=== PATIENT | male | born 1965 | race African-American/Black ===

== ENCOUNTER 2021-07-17 13:07 | Observation (INO) | payer MEDICAID ==
[~2021-07-17] VITALS: Ht 180.3 cm; Wt 81.0 kg
[2021-07-17] MEDS ORDERED: ASPIRIN81 MG PO (13:26)
[2021-07-17] MEDS ORDERED: TOPROL XL50 MG PO (13:26)
[2021-07-17] MEDS ORDERED: JANUVIA50 MG PO (13:26)
[2021-07-17] MEDS ORDERED: LISINOPRIL10 MG PO (13:27)
[2021-07-17] MEDS ORDERED: [UNRECOGNIZED DRUG - OTHER] PO (13:28)
[2021-07-17] MEDS ORDERED: CARVEDILOL12.5 MG PO (13:29)
[2021-07-17] MEDS ORDERED: METFORMIN500 M2 PO (13:29)
[2021-07-17 14:01] LABS: HEMATOCRIT 47.5 % (39.0-50.0); HEMOGLOBIN 15.4 g/dl (14.0-18.0); IMMATURE GRANULOCYTES 0.1 % (0.0-5.0); MEAN CELL VOLUME 98.1 fL CALC (80.0-100.0); MEAN CORPUSCULAR HGB 31.8 pG CALC (26.0-32.0); MEAN CORPUSCULAR HGB CONC 32.4 g/dL CAL (32.0-36.0); NEUT# 3.55 thou/uL (1.82-7.42); RED BLOOD COUNT 4.84 mill/uL (4.70-6.10); RED CELL DISTRI WIDTH 13.6 % (11.5-15.5)
[2021-07-17 14:19] LABS: ALBUMIN 4.3 g/dL (3.2-5.0); ALKALINE PHOSPHATASE 109 u/l (38-126); ANION GAP 12 (6-22 (CALC)); BILIRUBIN, TOTAL 0.5 mg/dL (0.0-1.4); BUN 14 mg/dL (9-20); BUN/CREATININE RATIO 10 (12-20 (CALC)); CARBON DIOXIDE 30 mmol/l (22-30); CHLORIDE 104 mmol/l (95-108); CREATININE 1.3 mg/dL (0.7-1.3); GFR 57 ML/MIN (>=60 (CALC)); GFR FOR AFR.AMER. > 60 ML/MIN (>=60 (CALC)); POTASSIUM 4.2 mmol/l (3.5-5.1); SGOT/AST 22 u/l (17-59); SODIUM 141 mmol/l (137-146); TOTAL PROTEIN 7.8 g/dL (6.3-8.2)
[2021-07-17 14:27] LABS: MYOGLOBIN 41 ng/mL (0 - 121)
[2021-07-17 20:08] VITALS: BP 126/83
[2021-07-18] VITALS: BP 136/80
[2021-07-18 03:54] VITALS: BP 126/75
[2021-07-18 06:07] LABS: HEMATOCRIT 43.1 % (39.0-50.0); HEMOGLOBIN 14.2 g/dl (14.0-18.0); MEAN CORPUSCULAR HGB 31.6 pG CALC (26.0-32.0); MEAN CORPUSCULAR HGB CONC 32.9 g/dL CAL (32.0-36.0); RED BLOOD COUNT 4.49 mill/uL (4.70-6.10); RED CELL DISTRI WIDTH 13.7 % (11.5-15.5)
[2021-07-18 06:25] LABS: ANION GAP 11 (6-22 (CALC)); BUN 18 mg/dL (9-20); BUN/CREATININE RATIO 13 (12-20 (CALC)); CALCULATED LDLCHOLESTEROL 82 mg/dL (62-129 (CALC)); CARBON DIOXIDE 26 mmol/l (22-30); CHLORIDE 106 mmol/l (95-108); CHOLESTEROL HDL RATIO 3.9 (<4.4 (CALC)); CREATININE 1.4 mg/dL (0.7-1.3); GFR 53 ML/MIN (>=60 (CALC)); GFR FOR AFR.AMER. > 60 ML/MIN (>=60 (CALC)); HDL CHOLESTEROL 33 mg/dL (>=40); POTASSIUM 4.4 mmol/l (3.5-5.1); SODIUM 139 mmol/l (137-146); TOTAL CHOLESTEROL 128 mg/dl (0-199); TOTAL TRIGLYCERIDES 65 mg/dl (30-149); VLDL CHOLESTROL 13 mg/dl (8-62 (CALC))
[2021-07-18 08:06] VITALS: BP 149/107
[2021-07-18] MEDS ORDERED: CARVEDILOL PHOSPHATE PO (09:24)
[2021-07-18] MEDS ORDERED: LISINOPRIL20 M1 PO (09:24)
[2021-07-18] MEDS ORDERED: TRAZODONE100 MG PO (09:24)
[2021-07-18] MEDS ORDERED: ATORVASTATIN CA10 MG PO (09:25)
[2021-07-18] MEDS ORDERED: COMPLERA PO (11:15)
[2021-07-18 11:51] VITALS: BP 133/82
[2021-07-18] MEDS ORDERED: MEDDOSEPAK PO (11:54)
[2021-07-18] MEDS ORDERED: ZPAK PO (11:55)
[2021-07-18] MEDS ORDERED: FLEXERIL5 M1 PO (11:55)
[2021-07-18] MEDS ORDERED: VENTOLIN HFA108 MCG IN (11:56)
== END 2021-07-18 13:30 | disposition home or self-care (01) ==
LOC: ED 13:07 → ED-I 16:33 → ED 16:55 → MS2 16:56
PROVIDERS: Emergency Medicine; Nurse Practitioner; ADMIT Internal Medicine; ATTEND Internal Medicine
DX: R07.89 Other chest pain (principal); J98.01 Acute bronchospasm; J06.9 Acute upper respiratory infection, unspecified; I11.0 Hypertensive heart disease with heart failure; I50.9 Heart failure, unspecified; E11.9 Type 2 diabetes mellitus without complications; I42.9 Cardiomyopathy, unspecified; I25.2 Old myocardial infarction; F17.210 Nicotine dependence, cigarettes, uncomplicated; Z21 Asymptomatic human immunodeficiency virus [HIV] infection status; Z95.810 Presence of automatic (implantable) cardiac defibrillator; Z79.84 Long term (current) use of oral hypoglycemic drugs; Z20.822 Contact with and (suspected) exposure to COVID-19
CPT/HCPCS: G0378; J1650

== ENCOUNTER 2021-08-20 09:46 | Observation (INO) | payer MEDICAID ==
[~2021-08-20] VITALS: Ht 180.3 cm; Wt 75.0 kg
[~2021-08-20 09:46] MED LIST: ASPIRIN81 MG PO; ATORVASTATIN CA10 MG PO; CARVEDILOL PHOSPHATE PO; CARVEDILOL12.5 MG PO; COMPLERA PO; FLEXERIL5 M1 PO; JANUVIA50 MG PO; LISINOPRIL10 MG PO; LISINOPRIL20 M1 PO; MEDDOSEPAK PO; METFORMIN500 M2 PO; TOPROL XL50 MG PO; TRAZODONE100 MG PO; VENTOLIN HFA108 MCG IN; ZPAK PO; [UNRECOGNIZED DRUG - OTHER] PO
--- NOTE | 2021-08-20 09:53 | NUR ---
PATIENT AMBULATED TO ROOM WITH STEADY GAIT AND PHYSICIAN NOTIFIED OF STATUS
[2021-08-20 10:59] LABS: HEMOGLOBIN 14.5 g/dl (14.0-18.0); IMMATURE GRANULOCYTES 0.2 % (0.0-5.0); MEAN CELL VOLUME 98.3 fL CALC (80.0-100.0); MEAN CORPUSCULAR HGB 31.7 pG CALC (26.0-32.0); MEAN CORPUSCULAR HGB CONC 32.2 g/dL CAL (32.0-36.0); NEUT# 3.34 thou/uL (1.82-7.42); RED BLOOD COUNT 4.58 mill/uL (4.70-6.10); RED CELL DISTRI WIDTH 13.7 % (11.5-15.5)
[2021-08-20 11:20] LABS: ALBUMIN 4.1 g/dL (3.2-5.0); ALKALINE PHOSPHATASE 83 u/l (38-126); ANION GAP 11 (6-22 (CALC)); BUN 13 mg/dL (9-20); BUN/CREATININE RATIO 10 (12-20 (CALC)); CARBON DIOXIDE 28 mmol/l (22-30); CHLORIDE 103 mmol/l (95-108); CREATININE 1.3 mg/dL (0.7-1.3); GFR 57 ML/MIN (>=60 (CALC)); GFR FOR AFR.AMER. > 60 ML/MIN (>=60 (CALC)); SGOT/AST 23 u/l (17-59); SODIUM 138 mmol/l (137-146); TOTAL PROTEIN 7.1 g/dL (6.3-8.2)
[2021-08-20 11:21] LABS: BILIRUBIN, TOTAL 0.8 mg/dL (0.0-1.4)
--- NOTE | 2021-08-20 13:22 | NUR ---
MD AT BEDSIDE. NOTIFIED BOTH PATIENT AND THIS RN THAT PT WILL NOT BE ADMITTED BUT D/C FROM THE ED. PT AWARE AND AGREEABLE TO PLAN OF CARE
[2021-08-20 13:33] VITALS: BP 122/78
== END 2021-08-20 13:40 | disposition home or self-care (01) | DRG 179 ==
LOC: ED 09:46 → ED-I 12:10 → ED 12:24 → ED-I 12:25
PROVIDERS: Family Medicine; ADMIT Hospitalist; ATTEND Hospitalist
DX: U07.1 COVID-19 (principal); I11.0 Hypertensive heart disease with heart failure; I50.9 Heart failure, unspecified; E11.9 Type 2 diabetes mellitus without complications; I25.10 Atherosclerotic heart disease of native coronary artery without angina pectoris; I25.2 Old myocardial infarction; F17.200 Nicotine dependence, unspecified, uncomplicated; Z21 Asymptomatic human immunodeficiency virus [HIV] infection status; Z79.84 Long term (current) use of oral hypoglycemic drugs; Z95.810 Presence of automatic (implantable) cardiac defibrillator; Z95.5 Presence of coronary angioplasty implant and graft

== ENCOUNTER 2022-10-07 11:09 | Inpatient (IN) | payer MEDICAID ==
[2022-10-07] VITALS (71 sets, daily range): BP systolic 64–114; BP diastolic 36–91
[~2022-10-07] VITALS: Ht 180.3 cm; Wt 85.9 kg
--- NOTE | 2022-10-07 11:20 | NUR ---
PT ARRIVED EMS, AMBULATED TO BED. MONITORS ATTACHED AND EKG DONE. NO O2.
[2022-10-07 12:27] LABS: BASO% 0.7 % (0-3); EOS% 3.7 % (0-8); IMMATURE GRANULOCYTES 0.2 % (0.0-5.0); LYMPH% 29.3 % (15-41); MEAN CELL VOLUME 95.4 fL CALC (80.0-100.0); MEAN CORPUSCULAR HGB 30.6 pG CALC (26.0-32.0); MEAN CORPUSCULAR HGB CONC 32.1 g/dL CAL (32.0-36.0); MONO% 7.7 % (2-13); NEUT# 3.19 thou/uL (1.82-7.42); NEUT% 58.4 % (42-76); RED BLOOD COUNT 4.38 mill/uL (4.70-6.10); RED CELL DISTRI WIDTH 14.2 % (11.5-15.5)
[2022-10-07 12:31] LABS: HEMATOCRIT 41.8 % (39.0-50.0); HEMOGLOBIN 13.4 g/dl (14.0-18.0)
[2022-10-07 12:41] LABS: INTERNATIONAL NORMALIZED RATIO 1.1 RATIO (0.7-1.3); PROTHROMBIN TIME 10.8 SECONDS (9.0-12.5)
[2022-10-07 13:01] LABS: ALKALINE PHOSPHATASE 55 u/l (38-126); BUN 12 mg/dL (9-20); BUN/CREATININE RATIO 14 (12-20 (CALC)); CREATININE 0.8 mg/dL (0.7-1.3); GFR FOR AFR.AMER. > 60 ML/MIN (>=60 (CALC)); GFR OTHER RACES > 60 ML/MIN (>=60 (CALC)); SGOT/AST 33 u/l (17-59); SODIUM 141 mmol/l (137-146)
[2022-10-07 13:03] LABS: ALBUMIN 2.1 g/dL (3.2-5.0); ANION GAP 4 (6-22 (CALC)); CARBON DIOXIDE 16 mmol/l (22-30); CHLORIDE 123 mmol/l (95-108); POTASSIUM 2.3 mmol/l (3.5-5.1); TOTAL PROTEIN 4.1 g/dL (6.3-8.2)
--- NOTE | 2022-10-07 13:04 | NUR ---
K+ 2.3, CALCIUM 5.5, BEBA TIP MENDER NOTIFIED.
[2022-10-07 14:22] LABS: URINE BILIRUBIN - DIPSTICK NEGATIVE (NEGATIVE); URINE BLOOD DIPSTICK NEGATIVE (NEGATIVE); URINE COLOR YELLOW; URINE GLUCOSE - DIPSTICK >=1000 mg/dL (NEGATIVE); URINE KETONE NEGATIVE (NEGATIVE); URINE LEUK ESTERASE NEGATIVE (NEGATIVE); URINE PROTEIN - DIPSTICK NEGATIVE (NEG-TRACE); URINE SPECIFIC GRAVITY 1.015; URINE UROBILINOGEN - DIPSTICK 0.2 E.U./dL (0.2)
[2022-10-07 14:23] LABS: URINE NITRITE - DIPSTICK NEGATIVE (Negative)
--- NOTE | 2022-10-07 15:42 | NUR ---
PATIENT TRANSPORTED TO ICU 8 IN STABLE CONDITION. CARDIZEM CONTINUED AT 10MG.
[2022-10-07] MEDS ORDERED: LIPITOR10 M1 PO (16:32)
[2022-10-07] MEDS ORDERED: GABAPENTIN300 M2 PO (16:33)
[2022-10-07] MEDS ORDERED: JARDIANCE10 MG PO (16:34)
[2022-10-07] MEDS ORDERED: JANUVIA50 MG PO (16:34)
[2022-10-07] MEDS ORDERED: LISINOPRIL10 MG PO (16:35)
[2022-10-07] MEDS ORDERED: METFORMIN HCL1000 MG PO (16:35)
[2022-10-07] MEDS ORDERED: TRAZODONE50 MG PO (16:36)
[2022-10-07] MEDS ORDERED: KAPSPARGO SPRIN50 MG PO (16:36)
[2022-10-07] MEDS ORDERED: COMPLERA PO (16:42)
[2022-10-07 17:31] LABS: ALKALINE PHOSPHATASE 72 u/l (38-126); BUN 15 mg/dL (9-20); BUN/CREATININE RATIO 10 (12-20 (CALC)); CHLORIDE 112 mmol/l (95-108); CREATININE 1.4 mg/dL (0.7-1.3); GFR FOR AFR.AMER. > 60 ML/MIN (>=60 (CALC)); GFR OTHER RACES 52 ML/MIN (>=60 (CALC)); SGOT/AST 44 u/l (17-59); SODIUM 140 mmol/l (137-146)
[2022-10-07 17:40] LABS: ALBUMIN 3.5 g/dL (3.2-5.0); ANION GAP 10 (6-22 (CALC)); BILIRUBIN, TOTAL 0.2 mg/dL (0.2-1.3); CARBON DIOXIDE 22 mmol/l (22-30); POTASSIUM 4.3 mmol/l (3.5-5.1)
--- NOTE | 2022-10-07 17:42 | NUR ---
PT ARRIVES TO ROOM 8 IN ICU AT THIS TIME, ALERT AND ORIENTED X 3. PT WITH CARDIZEM DRIP AT 10 MG/HR, SEEN IN AFIB HR 100-140 RANGE. PT DENIES PALPITATIONS.
--- NOTE | 2022-10-07 19:50 | NUR ---
pt up to use urinal independently, denies dizziness, palpitations, CP, and SOB, cardizem infusing
--- NOTE | 2022-10-07 21:50 | NUR ---
pt resting, moving self in bed and likes to lie on R side with BP cuff on L arm
--- NOTE | 2022-10-07 23:40 | NUR ---
order received for cardizem gtt initiated in ER, gtt stopped at this time due to empty bag, awaiting pharmacy to put order in
[2022-10-08] VITALS (48 sets, daily range): BP systolic 64–138; BP diastolic 42–88
--- NOTE | 2022-10-08 00:25 | NUR ---
pt with no cardizem running converted to SB/SR, denies feeling any difference, no weakness or palpitations, dizziness
--- NOTE | 2022-10-08 02:38 | NUR ---
pt sleeping soundly at this time with BP cuff on L arm while lying on R side, continues in SR with rate in 60's
--- NOTE | 2022-10-08 02:50 | NUR ---
pt up to use urinal, steady gait, denies other needs, cardizem remains off since 2344 and pt continues NSR
[2022-10-08 03:52] LABS: MEAN CELL VOLUME 96.1 fL CALC (80.0-100.0); MEAN CORPUSCULAR HGB 30.6 pG CALC (26.0-32.0); MEAN CORPUSCULAR HGB CONC 31.8 g/dL CAL (32.0-36.0); RED BLOOD COUNT 4.58 mill/uL (4.70-6.10); RED CELL DISTRI WIDTH 14.3 % (11.5-15.5)
[2022-10-08 04:08] LABS: ALBUMIN 3.4 g/dL (3.2-5.0); ALKALINE PHOSPHATASE 69 u/l (38-126); ANION GAP 8 (6-22 (CALC)); BILIRUBIN, TOTAL 0.2 mg/dL (0.2-1.3); BUN 16 mg/dL (9-20); BUN/CREATININE RATIO 12 (12-20 (CALC)); CALCULATED LDLCHOLESTEROL 77 mg/dL (62-129 (CALC)); CARBON DIOXIDE 24 mmol/l (22-30); CHLORIDE 111 mmol/l (95-108); CHOLESTEROL HDL RATIO 3.7 (<4.4 (CALC)); CREATININE 1.4 mg/dL (0.7-1.3); GFR FOR AFR.AMER. > 60 ML/MIN (>=60 (CALC)); GFR OTHER RACES 52 ML/MIN (>=60 (CALC)); HDL CHOLESTEROL 33 mg/dL (39.0-59.0); POTASSIUM 4.1 mmol/l (3.5-5.1); SGOT/AST 36 u/l (17-59); SODIUM 139 mmol/l (137-146); TOTAL CHOLESTEROL 123 mg/dl (0-199); TOTAL TRIGLYCERIDES 65 mg/dl (0-149); VLDL CHOLESTROL 13 mg/dl (8-62 (CALC))
--- NOTE | 2022-10-08 05:03 | NUR ---
pt resting, denied nees last time awake, he continues in SR, BP has stabilized
--- NOTE | 2022-10-08 07:54 | NUR ---
PT SEEN AT REST IN THE BED, EYES CLOSED, LIGHT SNORING HEARD. HEART MONITOR SHOWS SINUS RHYTHM IN THE 70s.
--- NOTE | 2022-10-08 11:37 | NUR ---
PT TO ECHO AT THIS TIME. PT REMAINS SINUS RHYTHM, CONTROLLED RATE. NO CHEST PAIN OR SHORTNESS OF BREATH.
--- NOTE | 2022-10-08 13:56 | NUR ---
PATIENT ARRIVED TO [facility] UNIT ROOM 271 IN WHEELCHAIR. PATIENT IS SELF CARE. PATIENT SELF AMBULATED TO BATHROOM WITHOUT ANY ISSUES. REPORTS NO PAIN RESTING COMFORTABLE. CALL LIGHT WITHIN AND PERSONAL BELONGINGS WITHIN REACH.
--- NOTE | 2022-10-08 20:00 | NUR ---
RECEIVED REPORT FROM NURSE HANS PATIENT RESTING IN BED, ALERT ORIENTED, DENIES PAIN OR CHEST DISCOMFORT, SALINE LOCK NOTED ON RFA G 18 PATENT FLUSHES WELL, HOOKED ON TELEMETRY, LUNG SOUNDS CLEAR, ACTIVE BOWLE SOUNDS LBM 10/08, CALL LIGHT IN REACH.
--- NOTE | 2022-10-08 22:00 | NUR ---
PATIENT REQUESTED SLEEP AIDE, GIVEN.
--- NOTE | 2022-10-09 | NUR ---
PATIENT RESTING IN BED, EYES CLOSED, BREATHING EVEN AND UNLABORED, CALL LIGHT IN REACH
[2022-10-09 03:50] VITALS: BP 100/67
--- NOTE | 2022-10-09 03:57 | NUR ---
PATIENT RESTING IN BED, NOT IN DISTRESS, BREATHING UNLABORED, CALL LIGHT IN REACH.
[2022-10-09 05:42] LABS: BASO% 0.8 % (0-3); EOS% 4.6 % (0-8); HEMATOCRIT 45.7 % (39.0-50.0); HEMOGLOBIN 14.7 g/dl (14.0-18.0); IMMATURE GRANULOCYTES 0.2 % (0.0-5.0); LYMPH% 36.4 % (15-41); MEAN CELL VOLUME 95.2 fL CALC (80.0-100.0); MEAN CORPUSCULAR HGB 30.6 pG CALC (26.0-32.0); MEAN CORPUSCULAR HGB CONC 32.2 g/dL CAL (32.0-36.0); MONO% 8.9 % (2-13); NEUT# 3.02 thou/uL (1.82-7.42); NEUT% 49.1 % (42-76); RED BLOOD COUNT 4.8 mill/uL (4.70-6.10); RED CELL DISTRI WIDTH 14.1 % (11.5-15.5)
[2022-10-09 05:59] LABS: ALBUMIN 3.8 g/dL (3.2-5.0); ALKALINE PHOSPHATASE 86 u/l (38-126); ANION GAP 10 (6-22 (CALC)); BUN 16 mg/dL (9-20); BUN/CREATININE RATIO 12 (12-20 (CALC)); CARBON DIOXIDE 28 mmol/l (22-30); CHLORIDE 106 mmol/l (95-108); CREATININE 1.4 mg/dL (0.7-1.3); GFR FOR AFR.AMER. > 60 ML/MIN (>=60 (CALC)); GFR OTHER RACES 52 ML/MIN (>=60 (CALC)); MAGNESIUM 2.1 mg/dL (1.6-2.3); POTASSIUM 4.3 mmol/l (3.5-5.1); SGOT/AST 30 u/l (17-59); SODIUM 139 mmol/l (137-146); TOTAL PROTEIN 6.5 g/dL (6.3-8.2)
[2022-10-09 06:01] LABS: BILIRUBIN, TOTAL 0.3 mg/dL (0.2-1.3)
[2022-10-09 06:41] VITALS: BP 112/69
--- NOTE | 2022-10-09 08:16 | NUR ---
PATIENT RESTING IN BED REPORTS FEELING BETTER TODAY. NO PAIN. CALL LIGHT WITHIN REACH WILL CONTINUE TO MONITOR.
[2022-10-09 11:49] VITALS: BP 123/78
[2022-10-09] MEDS ORDERED: TOPROL XL50 MG PO (12:29)
[2022-10-09] MEDS ORDERED: XARELTO20 MG PO (12:33)
--- NOTE | 2022-10-09 13:14 | NUR ---
PATIENT DISCHARGE. PIV AND HEART MONITOR REMOVED. DISCHARGE INSTRUCTIONS GIVEN. PATIENT LEFT UNIT WITH CLINICAL STUDIES SPECIALIST. PATIENT WALKED OVER TO [place] WHERE WORKS. ELIQUIS PRESCRIPTION GIVEN WITH COUPON.
== END 2022-10-09 13:14 | disposition home or self-care (01) | DRG 310 ==
LOC: ED 11:09 → ICU 14:25 → MS2 10-08 13:55
PROVIDERS: Nurse Practitioner; Nurse Practitioner Family; ADMIT Internal Medicine; ATTEND Internal Medicine
PROC: 3E0234Z Introduction of Serum, Toxoid and Vaccine into Muscle, Percutaneous Approach (ICD-10-PCS; principal; 2022-10-08)
DX: I48.91 Unspecified atrial fibrillation (principal); E87.6 Hypokalemia; E83.51 Hypocalcemia; E83.42 Hypomagnesemia; I10 Essential (primary) hypertension; I42.8 Other cardiomyopathies; E11.9 Type 2 diabetes mellitus without complications; I25.10 Atherosclerotic heart disease of native coronary artery without angina pectoris; F14.10 Cocaine abuse, uncomplicated; G47.33 Obstructive sleep apnea (adult) (pediatric); E78.5 Hyperlipidemia, unspecified; F17.210 Nicotine dependence, cigarettes, uncomplicated; Z23 Encounter for immunization; Z21 Asymptomatic human immunodeficiency virus [HIV] infection status; Z95.5 Presence of coronary angioplasty implant and graft; Z86.73 Personal history of transient ischemic attack (TIA), and cerebral infarction without residual deficits; Z85.72 Personal history of non-Hodgkin lymphomas; Z95.810 Presence of automatic (implantable) cardiac defibrillator; Z79.84 Long term (current) use of oral hypoglycemic drugs
CPT/HCPCS: J1650

== ENCOUNTER 2023-01-05 09:02 | Emergency (ER) | payer MEDICAID ==
[~2023-01-05] VITALS: Ht 180.3 cm; Wt 83.8 kg
[~2023-01-05 09:02] MED LIST changes: +GABAPENTIN300 M2 PO; +JARDIANCE10 MG PO; +KAPSPARGO SPRIN50 MG PO; +LIPITOR10 M1 PO; +METFORMIN HCL1000 MG PO; +TRAZODONE50 MG PO; +XARELTO20 MG PO
[2023-01-05 09:10] VITALS: BP 119/90
[2023-01-05 09:15] VITALS: BP 123/87
[2023-01-05 11:18] VITALS: BP 123/87
[2023-01-06] MEDS ORDERED: HYDROCO/APAP1 TA9 PO (16:01)
== END 2023-01-05 11:27 | disposition home or self-care (01) ==
LOC: ED 09:02
DX: M19.012 Primary osteoarthritis, left shoulder (principal); I50.9 Heart failure, unspecified; Z21 Asymptomatic human immunodeficiency virus [HIV] infection status; Z95.5 Presence of coronary angioplasty implant and graft